=== PATIENT | female | born 1980 | race African-American/Black ===

== ENCOUNTER 2016-04-26 20:25 | Emergency (ER) | payer BC, OTHER ==
[2016-04-26 20:31] VITALS: BP 135/78; PULSE 95; TEMP 98.2; BMI 47.5
== END 2016-04-26 22:37 | disposition left against medical advice (07) ==
LOC: JER 20:25
DX: Z53.21 Procedure and treatment not carried out due to patient leaving prior to being seen by health care provider (principal)
CPT/HCPCS: 99281-25

== ENCOUNTER 2016-04-27 20:05 | Emergency (ER) | payer BC, OTHER ==
[2016-04-27 20:13] VITALS: BP 142/85; PULSE 103; TEMP 98.4; BMI 44.9
--- NOTE | 2016-04-27 20:17 | PDOC ---
History of Present Illness - General History Source: Patient Exam Limitations: No Limitations - History of Present Illness Initial Comments: 04/27/16 21:16 The patient is a 35 year old female, with a significant past medical history of migraines, vertigo (diagnosed in Jan 2016), PCOS, and anemia who presents to the emergency department with headache, blurry vision, and dizziness for about 4 days. She reports her current symptoms do not feel like her regular migraines , her last episode of migraine was in january of 2016. She reports usually taking butalbital with good alleviation of her pain. She reports upon ED arrival that she feels like the room is spinning and reports everything looks foggy. She describes her headache as a throbbing vice sensation and reports it being localized at the top of her head worse at her left side. She ranks her pain a 8/10 in pain intensity. She denies fever, chills, or illness. She denies nausea, vomit, diarrhea and constipation. LMP was in january, reports having a hard time ovulating and reports having blood test indicating she is not . She denies any trauma or injury. PAST SURGICAL HISTORY: No significant history. FAMILY HISTORY: No pertinent history. SOCIAL HISTORY: Patient lives with family and is employed. MEDICATIONS: Reviewed. ALLERGIES: As per nursing notes. General: No fevers or chills, no weakness, no weight loss HEENT: Yes blurry vision. No change in vision. No sore throat. No ear pain CardioVascular: No chest pain or shortness of breath Respiratory:No cough, or wheezing. Gastrointestinal: No nausea, vomiting, diarrhea or constipation. No rectal bleeding Genitourinary: No dysuria, hematuria, or frequency Musculoskeletal: No joint or muscle pain or swelling Neurologic: Yes headache, dizziness Psychiatric: No depression Skin: No rashes or easy bruising Endocrine: no increased thirst or abnormal weight change Allergic: no skin or latex allergy All other systems reviewed and normal GENERAL: The patient is awake, alert, and fully oriented, in no acute distress. HEAD: Normal with no signs of trauma. EYES: Pupils equal, round and reactive to light, extraocular movements intact, sclera anicteric, conjunctiva clear. EXTREMITIES: Normal range of motion, no edema. NEUROLOGICAL: Normal speech, normal gait. Mild photophobia. PSYCH: Normal mood, normal affect. SKIN: Warm, Dry, normal turgor, no rashes or lesions noted. <Al Pizarro - Last Filed: 04/27/16 21:15> - General History Source: Patient Exam Limitations: No Limitations - History of Present Illness Initial Comments: 04/27/16 21:31 A portion of this note was documented by scribe services under my direction. I have reviewed the details of the note, within reason, and agree with the documentation. The case summary and management plan written by me. Assessment and plan: This is a 35-year-old female who has history of polycystic ovary syndrome and has had intermittent moderately severe migraine headaches. Patient was here approximately one month ago with a similar headache and now back again this month with another headache. Patient has not followed up with a neurologist or headache specialist as her headaches of been more intermittent but now seems to be more frequent. Patient was medicated with Fiorcet, Toradol and Reglan. Patient symptoms are improved post medication. Patient was referred to a neurologist for follow-up. Patient discharged home with her significant other. <Alfonso Carrillo I - Last Filed: 04/27/16 21:47> - General Chief Complaint: Lightheaded Stated Complaint: ONGOING HEADACHE AND DIZZINESS Time Seen by Provider: 04/27/16 20:07 Past History <Al Pizarro - Last Filed: 04/27/16 21:15> - Past Medical History Anemia: Yes (IRON DEFICIENCY) Asthma: Yes (CHILD HIDALGO) Diabetes: Yes Disorders: Yes (PCOS) Kidney Stones: Yes - Surgical History Abdominal Surgery: Yes (POLYPECTOMY, D&C) - Reproductive History (#): 2 Para: 0 Cervical CA: No Dysfunctional Uterine Bleeding: No Ectopic : No Endometrial CA: No Polycystic Ovaries: No Therapeutic (s) & number: No Spontaneous : 1 - Immunization History Immunization Up to Date: Yes - Psycho/Social/Smoking Cessation Hx Anxiety: No Suicidal Ideation: No Smoking Status: No Smoking History: Never smoked Have you smoked in the past 12 months: No Number of Cigarettes Smoked Daily: 0 Hx Alcohol Use: No Drug/Substance Use Hx: No Substance Use Type: None Hx Substance Use Treatment: No <Alfonso Carrillo I - Last Filed: 04/27/16 21:47> - Past Medical History Allergies/Adverse Reactions: Allergies Allergy/AdvReac Type Severity Reaction Status Date / Time Penicillins Allergy Verified 03/09/16 18:11 Home Medications: Ambulatory Orders Acetaminophen [Tylenol] 650 mg PO PRN PRN 04/27/16 Meclizine HCl [Antivert -] 25 mg PO QID PRN 04/27/16 *Physical Exam - Vital Signs Last Vital Signs Temp Pulse Resp BP Pulse Ox 98.4 F 103 H 18 142/85 98 04/27/16 20:11 04/27/16 20:11 04/27/16 20:11 04/27/16 20:11 04/27/16 20:11 <Al Pizarro - Last Filed: 04/27/16 21:15> - Vital Signs Last Vital Signs Temp Pulse Resp BP Pulse Ox 98.4 F 103 H 18 142/85 98 04/27/16 20:11 04/27/16 20:11 04/27/16 20:11 04/27/16 20:11 04/27/16 20:11 <Alfonso Carrillo I - Last Filed: 04/27/16 21:47> *DC/Admit/Observation/Transfer - Attestations Scribe Attestion: Documentation prepared by Al Pizarro, acting as emergency medicine medical director for Alfonso Carrillo MD. 04/27/16 20:51 <Al Pizarro - Last Filed: 04/27/16 21:15> - Discharge Dispostion Admit: No <Alfonso Carrillo I - Last Filed: 04/27/16 21:47> Diagnosis at time of Disposition: Migraine Qualifiers: Migraine type: unspecified Status migrainosus presence: without status migrainosus Intractability: not intractable Qualified Code(s): G43.909 - Migraine, unspecified, not intractable, without status migrainosus - Discharge Dispostion Disposition: HOME Condition at time of disposition: Stable - Referrals Referrals: Joann Glass MD [Primary Care Provider] - - Patient Instructions Additional Instructions: Follow-up with a neurologist. If you need a neurologist call Dr. Webster at [phone]. Return to the emergency department immediately with ANY new, persistent or worsening symptoms. Continue any medications as previously prescribed by your physician. You should follow up with your primary doctor as soon as possible regarding today's emergency department visit. . Please make sure your doctor reviews the results of your emergency evaluation. Thank you for coming to the Emergency Department today for your care. It was a pleasure to see you today. Please note that your evaluation is INCOMPLETE until you follow-up with your doctor.
[2016-04-27] MEDS ORDERED: ACETAMINOPHEN/CAFFEINE/BUTALBITAL 1 TAB PO ONE (20:58)
[2016-04-27] MEDS ORDERED: KETOROLAC TROMETHAMINE 60 MG/2 ML VIAL IM ONE (20:58)
[2016-04-27] MEDS ORDERED: METOCLOPRAMIDE HCL INJECTION 10 MG/2 ML VIAL IM ONE (20:59)
[2016-04-27] MEDS ORDERED: KETOROLAC TROMETHAMINE 60 MG/2 ML VIAL ONE (21:01)
[2016-04-27] MEDS ORDERED: ACETAMINOPHEN/CAFFEINE/BUTALBITAL 1 TAB ONE (21:02)
== END 2016-04-27 21:53 | disposition home or self-care (01) ==
LOC: FER 20:05
PROC: 3E0233Z Introduction of Anti-inflammatory into Muscle, Percutaneous Approach (ICD-10-PCS; principal; 2016-04-27)
PROC: 3E023GC Introduction of Other Therapeutic Substance into Muscle, Percutaneous Approach (ICD-10-PCS; 2016-04-27)
DX: G43.909 Migraine, unspecified, not intractable, without status migrainosus (principal); E28.2 Polycystic ovarian syndrome; D64.9 Anemia, unspecified
CPT/HCPCS: 99281-25

== ENCOUNTER 2017-02-18 19:28 | Emergency (ER) | payer BC, OTHER ==
--- NOTE | 2017-02-18 19:45 | PDOC ---
History of Present Illness - General History Source: Patient Exam Limitations: No Limitations - History of Present Illness Initial Comments: 02/18/17 20:14 The patient is a 36 year old female, with a significant past medical history of migraines, vertigo, PCOS, and anemia, who presents to the emergency department with right lower back pain beginning approximately one day ago. The patient reports that she felt a discomfort in her lower back on Sunday night and she experienced the right lower back pain upon waking up on Sunday morning. She describes the right lower back pain as non radiating and not positional. She reports she took 2 Aleve without relief for the back pain. The patient states she has a prior history of kidney stones and describes the pain as similar to past kidney stones. She denies recent fevers, chills, headache or dizziness. She denies recent nausea, vomit, diarrhea or constipation. She denies recent dysuria, frequency, urgency or hematuria. She denies recent chest pain or shortness of breath. Allergies: Penicillins Past surgical history: None reported. Primary Care Physician: Dr. Joann Glass <Bj Mondragon - Last Filed: 02/18/17 20:14> <George Jimenez - Last Filed: 02/19/17 06:33> - General Chief Complaint: Back Pain Stated Complaint: RIGHT LOWER BACK PAIN Time Seen by Provider: 02/18/17 19:45 Past History <Bj Mondragon - Last Filed: 02/18/17 20:14> - Past Medical History Anemia: Yes (IRON DEFICIENCY) Asthma: Yes (CHILD HIDALGO) Diabetes: Yes Disorders: Yes (PCOS) Kidney Stones: Yes - Surgical History Abdominal Surgery: Yes (POLYPECTOMY, D&C) - Reproductive History (#): 2 Para: 0 Cervical CA: No Dysfunctional Uterine Bleeding: No Ectopic : No Endometrial CA: No Polycystic Ovaries: No Therapeutic (s) & number: No Spontaneous : 1 - Immunization History Immunization Up to Date: Yes - Suicide/Smoking/Psychosocial Hx Smoking Status: No Smoking History: Never smoked Have you smoked in the past 12 months: No Number of Cigarettes Smoked Daily: 0 Hx Alcohol Use: No Drug/Substance Use Hx: No Substance Use Type: None Hx Substance Use Treatment: No <George Jimenez - Last Filed: 02/19/17 06:33> - Past Medical History Allergies/Adverse Reactions: Allergies Allergy/AdvReac Type Severity Reaction Status Date / Time Penicillins Allergy Verified 03/09/16 18:11 Home Medications: Ambulatory Orders Acetaminophen [Tylenol] 650 mg PO PRN PRN 04/27/16 Oxycodone HCl/Acetaminophen [Percocet 5-325 mg Tablet] 1 tab PO Q6H PRN #10 tablet MDD 4 02/18/17 Review of Systems - Review of Systems Comments:: 02/18/17 20:15 GENERAL/CONSTITUTIONAL: No fever or chills. No weakness. HEAD, EYES, EARS, NOSE AND THROAT: No change in vision. No ear pain or discharge. No sore throat. CARDIOVASCULAR: No chest pain or shortness of breath. RESPIRATORY: No cough, wheezing, or hemoptysis. GASTROINTESTINAL: No nausea, vomiting, diarrhea or constipation. GENITOURINARY: No dysuria, frequency, or change in urination. MUSCULOSKELETAL: +Right lower back pain. No neck pain SKIN: No rash NEUROLOGIC: No headache, vertigo, loss of consciousness, or change in strength/ sensation. ENDOCRINE: No increased thirst. No abnormal weight change. HEMATOLOGIC/LYMPHATIC: No anemia, easy bleeding, or history of blood clots. ALLERGIC/IMMUNOLOGIC: No hives or skin allergy. <Bj Mondragon - Last Filed: 02/18/17 20:14> *Physical Exam - Vital Signs Last Vital Signs Temp Pulse Resp BP Pulse Ox 98.5 F 103 H 16 125/90 95 02/18/17 19:30 02/18/17 19:30 02/18/17 19:30 02/18/17 19:30 02/18/17 19:30 - Physical Exam Comments: 02/18/17 20:15 GENERAL: Awake, alert, and fully oriented, in no acute distress HEAD: No signs of trauma EYES: PERRLA, EOMI, sclera anicteric, conjunctiva clear ENT: Auricles normal inspection, hearing grossly normal, nares patent, oropharynx clear without exudates. Moist mucosa NECK: Normal ROM, supple, no lymphadenopathy, JVD, or masses LUNGS: Breath sounds equal, clear to auscultation bilaterally. No wheezes, and no crackles HEART: Regular rate and rhythm, normal S1 and S2, no murmurs, rubs or gallops ABDOMEN: Soft, nontender, normoactive bowel sounds. No guarding, no rebound. No masses EXTREMITIES: Normal range of motion, no edema. No clubbing or cyanosis. No cords, erythema, or tenderness NEUROLOGICAL: Cranial nerves II through XII grossly intact. Normal speech, normal gait SKIN: Warm, Dry, normal turgor, no rashes or lesions noted. <Bj Mondragon - Last Filed: 02/18/17 20:14> ED Treatment Course - Medications Given in the ED: ED Medications Discontinued Medications Generic Name Dose Route Start Last Admin Trade Name Freq PRN Reason Stop Dose Admin Ketorolac Tromethamine 60 mg 02/18/17 20:04 02/18/17 20:00 Toradol Injection - IM 02/18/17 20:05 60 mg ONCE ONE Administration <Bj Mondragon - Last Filed: 02/18/17 20:14> - LABORATORY CBC & Chemistry Diagram: 02/18/17 21:10 02/18/17 21:10 <George Jimenez - Last Filed: 02/19/17 06:33> Medical Decision Making - Medical Decision Making 02/19/17 06:30 hx most c/w renal colic. ABd nt, no CVAT, no focal tenderness of back. However, no evidence of acute pathology on labs or imaging ? small kidney stone observed in ED x 4.5 hrs with complete resolution of symptoms instructed to return to ED for recurrence of persistent pain <George Jimenez - Last Filed: 02/19/17 06:33> *DC/Admit/Observation/Transfer - Attestations Scribe Attestion: 02/18/17 20:15 Documentation prepared by Bj Mondragon, acting as emergency medicine medical director for George Jimenez MD. <Bj Mondragon - Last Filed: 02/18/17 20:14> <George Jimenez - Last Filed: 02/19/17 06:33> Diagnosis at time of Disposition: Flank pain - Discharge Dispostion Disposition: HOME Condition at time of disposition: Good - Prescriptions Prescriptions: Oxycodone HCl/Acetaminophen [Percocet 5-325 mg Tablet] 1 tab PO Q6H PRN #10 tablet MDD 4 PRN Reason: Severe Pain - Referrals Referrals: Joann Glass MD [Primary Care Provider] - Call tomorrow - Patient Instructions Additional Instructions: Please followup with your physician for ongoing care. - Post Discharge Activity Forms/Work/School Notes: Back to Work
[2017-02-18 19:57] VITALS: BP 125/90; PULSE 103; TEMP 98.5; BMI 48.1
[2017-02-18] MEDS ORDERED: KETOROLAC TROMETHAMINE 60 MG/2 ML VIAL ONE (19:58)
[2017-02-18] MEDS ORDERED: KETOROLAC TROMETHAMINE 60 MG/2 ML VIAL IM ONE (20:04)
[2017-02-18 20:20] LABS: PH,URINE 6.5 (4.5-8); URINE APPEARANCE Clear; URINE BILIRUBIN Negative (NEGATIVE); URINE BLOOD Negative (NEGATIVE); URINE COLOR YELLOW; URINE GLUCOSE (UA) Negative (NEGATIVE); URINE KETONE Negative (NEGATIVE); URINE LEUK ESTERASE TRACE (NEGATIVE); URINE NITRITE Negative (NEGATIVE); URINE PROTEIN Negative (NEGATIVE); URINE UROBILINOGEN 0.2 (0.2-1.0)
[2017-02-18 20:41] LABS: URINE RBC 0-3 /hpf (0-3)
[2017-02-18] MEDS ORDERED: morphine CARPU-JECT 4 MG/1 ML DISP.SYRIN IVPUSH ONE (21:03)
[2017-02-18] MEDS ORDERED: SODIUM CHLORIDE 1,000 ML IV STA (21:04)
[2017-02-18] MEDS ORDERED: morphine CARPU-JECT 10 MG/1 ML DISP.SYRIN ONE (21:17)
[2017-02-18 21:38] LABS: ANION GAP 8 (8-16); CALCIUM 9.1 mg/dl (8.4-10.2); CO2 24 mmol/L (22-28); CREATININE 0.5 mg/dl (0.6-1.3); GLUCOSE,RANDOM 86 mg/dl (74-106)
[2017-02-18 21:55] LABS: BASOPHIL 1.1 % (0-2.0); EOSINOPHIL 2.6 % (0-4.5); MCH 24.4 pg (25.7-33.7); MEAN CELL VOLUME 74.2 fl (80-96); MEAN PLT VOLUME 9.8 fl (7.5-11.1); NEUTROPHILS 58.2 % (42.8-82.8); PLATELET COUNT 328 K/MM3 (134-434); RDW 15.6 % (11.6-15.6); WHITE BLOOD COUNT 9.1 K/mm3 (4.0-10.8)
[2017-02-18 23:15] LABS: ANISOCYTOSIS 1+; HYPOCHROMIA 1+; MICROCYTOSIS 1+
[2017-02-18 23:16] LABS: OVALOCYTE 1+
== END 2017-02-18 23:52 | disposition home or self-care (01) ==
LOC: FER 19:28
PROC: 3E0333Z Introduction of Anti-inflammatory into Peripheral Vein, Percutaneous Approach (ICD-10-PCS; principal; 2017-02-18)
PROC: 3E033GC Introduction of Other Therapeutic Substance into Peripheral Vein, Percutaneous Approach (ICD-10-PCS; 2017-02-18)
PROC: 3E0337Z Introduction of Electrolytic and Water Balance Substance into Peripheral Vein, Percutaneous Approach (ICD-10-PCS; 2017-02-18)
DX: R10.30 Lower abdominal pain, unspecified (principal); D50.9 Iron deficiency anemia, unspecified; E11.9 Type 2 diabetes mellitus without complications; E28.2 Polycystic ovarian syndrome; Z88.0 Allergy status to penicillin; Z87.09 Personal history of other diseases of the respiratory system; Z87.442 Personal history of urinary calculi
CPT/HCPCS: 36415; 74176-TC; 80048; 81003; 81015; 84703; 85025; 99283-25

== ENCOUNTER 2017-09-12 19:12 | Emergency (ER) | payer OTHER, BC ==
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
[2017-09-12 19:21] VITALS: BP 130/78; PULSE 88; TEMP 98; BMI 47.0
[2017-09-12] MEDS ORDERED: KETOROLAC TROMETHAMINE 60 MG/2 ML VIAL IM ONE (19:36)
[2017-09-12] MEDS ORDERED: KETOROLAC TROMETHAMINE 60 MG/2 ML VIAL ONE (19:47)
== END 2017-09-12 19:53 | disposition home or self-care (01) ==
LOC: FER 19:12
PROC: 3E0233Z Introduction of Anti-inflammatory into Muscle, Percutaneous Approach (ICD-10-PCS; principal; 2017-09-12)
DX: S13.4XXA Sprain of ligaments of cervical spine, initial encounter (principal); V43.52XA Car driver injured in collision with other type car in traffic accident, initial encounter; Y93.89 Activity, other specified; Y92.410 Unspecified street and highway as the place of occurrence of the external cause
CPT/HCPCS: 99282-25

== ENCOUNTER 2018-07-07 22:49 | Emergency (ER) | payer BC ==
[2018-07-07 22:59] VITALS: BP 138/84; PULSE 90; TEMP 98.3; BMI 54.8
[2018-07-07] MEDS ORDERED: OXYMETAZOLINE 0.05% NASAL SOLUTION 15 ML BOTTLE NS ONE ×2 (23:30→23:38)
[2018-07-07] MEDS ORDERED: KETOROLAC TROMETHAMINE 30 MG/1 ML VIAL IM ONE (23:30)
[2018-07-07] MEDS ORDERED: ACETAMINOPHEN 325 MG TABLET (FP) PO ONE (23:30)
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
[2018-07-07] MEDS ORDERED: ALBUTEROL SO4 2.5/IPRATROPIUM 0.5 INH SOL 3 ML VIAL.NEB. NEB ONE ×2 (23:31→23:38)
[2018-07-07] MEDS ORDERED: ACETAMINOPHEN 325 MG TABLET (FP) ONE (23:38)
[2018-07-07] MEDS ORDERED: KETOROLAC TROMETHAMINE 30 MG/1 ML VIAL ONE (23:38)
== END 2018-07-08 00:17 | disposition home or self-care (01) ==
LOC: FER 22:49
PROC: 3E0F7GC Introduction of Other Therapeutic Substance into Respiratory Tract, Via Natural or Artificial Opening (ICD-10-PCS; principal; 2018-07-07)
PROC: 3E0233Z Introduction of Anti-inflammatory into Muscle, Percutaneous Approach (ICD-10-PCS; 2018-07-07)
DX: J11.1 Influenza due to unidentified influenza virus with other respiratory manifestations (principal); J45.909 Unspecified asthma, uncomplicated; D50.9 Iron deficiency anemia, unspecified
CPT/HCPCS: 99282-25

== ENCOUNTER 2020-03-02 13:55 | Emergency (ER) | payer BC, OTHER ==
[2020-03-02 14:08] VITALS: BP 127/80; PULSE 91; TEMP 99; BMI 48.8
[2020-03-02] MEDS ORDERED: ACETAMINOPHEN 1000 MG/100 ML VIAL (NON FORMULARY) IVPB ONE (14:39)
[2020-03-02] MEDS ORDERED: SODIUM CHLORIDE 0.9% 500 ML INFUS.BAG IV ONE (14:39)
[2020-03-02] MEDS ORDERED: ACETAMINOPHEN INJECTION 100 ML IVPB ONE (14:42)
[2020-03-02] MEDS ORDERED: METOCLOPRAMIDE HCL INJECTION 10 MG/2 ML VIAL IVPB ONE (14:56)
[2020-03-02 15:31] LABS: EPITHELIAL CELLS MANY /hpf
[2020-03-02] MEDS ORDERED: METOCLOPRAMIDE HCL INJECTION 10 MG/2 ML VIAL ONE (15:35)
[2020-03-02 16:14] LABS: INR 1.19 (0.82-1.09); PROTHROMBIN TIME (PATIENT) 13.2 SEC (10.2-13.0)
[2020-03-02 16:19] LABS: ALBUMIN 3.8 g/dl (3.4-5.0); BILIRUBIN,TOTAL 0.3 mg/dl (0.2-1); CALCIUM 9.1 mg/dl (8.5-10); CREATININE 0.5 mg/dl (0.55-1.3); MAGNESIUM 1.9 mg/dL (1.8-2.4); POTASSIUM 4.3 mmol/L (3.5-5.1); TOT PROT 7.1 g/dl (6.4-8.2)
[2020-03-02 16:39] LABS: BASO % 0.9 % (0-2.0); EOS % 3.6 % (0-4.5); HEMOGLOBIN 12.8 GM/dl (10.7-15.3); LYMPH % 41.7 % (8-40); MCH 25.9 pg (25.7-33.7); MCHC 31.9 g/dl (32.0-36.0); MEAN CELL VOLUME 81.2 fl (80-96); MEAN PLT VOLUME 9.8 fl (7.5-11.1); MONO % 5.8 % (3.8-10.2); PLATELET COUNT 267 K/MM3 (134-434); RBC 4.93 M/mm3 (3.60-5.2); RDW 13.7 % (11.6-15.6); WHITE BLOOD COUNT 7.1 K/mm3 (4.0-10.8)
== END 2020-03-02 17:07 | disposition home or self-care (01) ==
LOC: FER 13:55
PROC: 3E033NZ Introduction of Analgesics, Hypnotics, Sedatives into Peripheral Vein, Percutaneous Approach (ICD-10-PCS; principal; 2020-03-02)
PROC: 3E033GC Introduction of Other Therapeutic Substance into Peripheral Vein, Percutaneous Approach (ICD-10-PCS; 2020-03-02)
DX: B34.9 Viral infection, unspecified (principal); N39.0 Urinary tract infection, site not specified
CPT/HCPCS: 36415; 80053; 81003; 81015; 82962; 83735; 84703; 85025; 85610; 87086; 87186; 99285-25; C9803; J0131; U0003

== ENCOUNTER 2020-05-30 10:01 | Emergency (ER) | payer BC, OTHER ==
[2020-05-30 10:07] VITALS: BP 134/90; PULSE 86; TEMP 98; BMI 47.5
[2020-05-30] MEDS ORDERED: KETOROLAC TROMETHAMINE 30 MG/1 ML VIAL IVPUSH ONE (10:58)
[2020-05-30] MEDS ORDERED: METOCLOPRAMIDE HCL INJECTION 10 MG/2 ML VIAL IVPB ONE (10:58)
[2020-05-30] MEDS ORDERED: METOCLOPRAMIDE HCL INJECTION 10 MG/2 ML VIAL ONE (11:24)
[2020-05-30] MEDS ORDERED: KETOROLAC TROMETHAMINE 30 MG/1 ML VIAL ONE (11:25)
== END 2020-05-30 13:00 | disposition home or self-care (01) ==
LOC: JER 10:01
PROC: 3E033GC Introduction of Other Therapeutic Substance into Peripheral Vein, Percutaneous Approach (ICD-10-PCS; principal; 2020-05-30)
DX: R51.9 Headache, unspecified (principal)
CPT/HCPCS: 70450-TC; 84703; 99284-25

== ENCOUNTER 2020-07-23 08:28 | Emergency (ER) | payer BC, OTHER ==
[2020-07-23] MEDS ORDERED: ACETAMINOPHEN 1000 MG/100 ML VIAL (NON FORMULARY) IVPB ONE (08:33)
[2020-07-23] MEDS ORDERED: SODIUM CHLORIDE 0.9% 1000 ML INFUS.BAG IV ONE ×2 (08:33→09:40)
[2020-07-23 08:34] VITALS: TEMP 98.1; BMI 47.9
[2020-07-23] MEDS ORDERED: ACETAMINOPHEN INJECTION 100 ML IVPB ONE (08:54)
[2020-07-23] MEDS ORDERED: ONDANSETRON 4 MG/2 ML VIAL IVPUSH ONE (08:58)
[2020-07-23] MEDS ORDERED: ONDANSETRON 4 MG/2 ML VIAL ONE (08:59)
[2020-07-23 09:13] LABS: HEMOGLOBIN 13.7 GM/dl (10.7-15.3)
[2020-07-23 09:15] LABS: BASO % 1.4 % (0-2.0); EOS % 4.2 % (0-4.5); HEMATOCRIT 42.4 % (32.4-45.2); LYMPH % 27.3 % (8-40); MCH 25.7 pg (25.7-33.7); MCHC 32.3 g/dl (32.0-36.0); MEAN CELL VOLUME 79.8 fl (80-96); MEAN PLT VOLUME 9.2 fl (7.5-11.1); MONO % 5.1 % (3.8-10.2); PLATELET COUNT 287 K/MM3 (134-434); RBC 5.32 M/mm3 (3.60-5.2); RDW 13.3 % (11.6-15.6); WHITE BLOOD COUNT 6.5 K/mm3 (4.0-10.8)
[2020-07-23 09:21] LABS: BILIRUBIN,TOTAL 0.5 mg/dl (0.2-1); CALCIUM 8.7 mg/dl (8.5-10); CREATININE 0.6 mg/dl (0.55-1.3); TOT PROT 7.2 g/dl (6.4-8.2)
[2020-07-23] MEDS ORDERED: FAMOTIDINE 20 MG/50 ML IVPB 20 MG/50 ML MG IVPB ONE ×2 (09:40→10:33)
[2020-07-23 11:08] LABS: EPITHELIAL CELLS MANY /hpf
[2020-07-23 14:02] VITALS: BP 128/88; PULSE 88
== END 2020-07-23 14:12 | disposition home or self-care (01) ==
LOC: FER 08:28
PROC: 3E0333Z Introduction of Anti-inflammatory into Peripheral Vein, Percutaneous Approach (ICD-10-PCS; principal; 2020-07-23)
PROC: 3E033GC Introduction of Other Therapeutic Substance into Peripheral Vein, Percutaneous Approach (ICD-10-PCS; 2020-07-23)
PROC: 3E033GC Introduction of Other Therapeutic Substance into Peripheral Vein, Percutaneous Approach (ICD-10-PCS; 2020-07-23)
DX: R10.84 Generalized abdominal pain (principal)
CPT/HCPCS: 36415; 74177-TC; 80053; 81003; 81015; 84702; 84703; 85025; 87086; 87186; 99285-25; C9803; J0131; U0003; U0005

== ENCOUNTER 2021-02-14 17:00 | Emergency (ER) | payer BC, OTHER ==
[2021-02-14 17:21] VITALS: BP 157/100; PULSE 106; TEMP 100.2; BMI 47.5
[2021-02-14] MEDS ORDERED: ACETAMINOPHEN 325 MG TABLET (FP) PO ONE (17:39)
[2021-02-14] MEDS ORDERED: ACETAMINOPHEN 325 MG TABLET (FP) ONE (17:58)
== END 2021-02-14 19:06 | disposition home or self-care (01) ==
LOC: FER 17:00
DX: R05.1 Acute cough (principal); Z11.52 Encounter for screening for COVID-19
CPT/HCPCS: 71046-TC-FY; 87804; 99284-25; C9803; U0003; U0005

== ENCOUNTER 2021-05-31 14:10 | Emergency (ER) | payer BC, OTHER ==
[2021-05-31 14:20] VITALS: TEMP 98.6; BMI 48.4
[2021-05-31] MEDS ORDERED: ACETAMINOPHEN 1000 MG/100 ML BAG IVPB ONE (15:17)
[2021-05-31] MEDS ORDERED: METOCLOPRAMIDE HCL INJECTION 10 MG/2 ML VIAL IVPB ONE (15:17)
[2021-05-31] MEDS ORDERED: METOCLOPRAMIDE HCL INJECTION 10 MG/2 ML VIAL ONE (15:36)
[2021-05-31] MEDS ORDERED: ACETAMINOPHEN INJECTION 100 ML IVPB ONE (15:36)
[2021-05-31 15:41] LABS: ALBUMIN 3.9 g/dl (3.4-5.0); BILIRUBIN,TOTAL 0.4 mg/dl (0.2-1); CALCIUM 9.3 mg/dl (8.5-10); CREATININE 0.5 mg/dl (0.55-1.3); TOT PROT 7.2 g/dl (6.4-8.2)
[2021-05-31 16:23] LABS: HEMATOCRIT 39.4 % (32.4-45.2); HEMOGLOBIN 12.6 GM/dL (10.7-15.3); MCH 25.1 pg (25.7-33.7); MEAN CELL VOLUME 78.6 fl (80-96); MEAN PLT VOLUME 9.4 fl (7.5-11.1); PLATELET COUNT 277 10^3/uL (134-434); RBC 5.01 M/mm3 (3.60-5.2); RDW 14.3 % (11.6-15.6); WHITE BLOOD COUNT 6.3 K/mm3 (4.0-10.0)
[2021-05-31 17:30] VITALS: BP 122/52; PULSE 76
== END 2021-05-31 17:40 | disposition home or self-care (01) ==
LOC: FER 14:10
PROC: 3E0333Z Introduction of Anti-inflammatory into Peripheral Vein, Percutaneous Approach (ICD-10-PCS; principal; 2021-05-31)
PROC: 3E033GC Introduction of Other Therapeutic Substance into Peripheral Vein, Percutaneous Approach (ICD-10-PCS; 2021-05-31)
DX: G43.909 Migraine, unspecified, not intractable, without status migrainosus (principal); I10 Essential (primary) hypertension; R07.89 Other chest pain
CPT/HCPCS: 36415; 70450-TC; 71045-TC-FY; 80053; 81025; 84484; 85027; 93005; 99285-25

== ENCOUNTER 2021-08-04 11:48 | Emergency (ER) | payer BC, OTHER ==
[2021-08-04 11:55] VITALS: BP 125/86; PULSE 87; TEMP 97.2; BMI 47.7
[2021-08-04] MEDS ORDERED: SODIUM CHLORIDE 1,000 ML IV ONE (12:14)
[2021-08-04] MEDS ORDERED: ACETAMINOPHEN 325 MG TABLET (FP) PO ONE (12:14)
[2021-08-04] MEDS ORDERED: ACETAMINOPHEN 325 MG TABLET (FP) ONE (12:34)
[2021-08-04 12:38] LABS: EPITHELIAL CELLS MODERATE /hpf
[2021-08-04] MEDS ORDERED: SULFAMETHOXAZOLE/TRIMETHOPRIM 800MG/160MG D.S. TABLET PO ONE (12:50)
[2021-08-04] MEDS ORDERED: SULFAMETHOXAZOLE/TRIMETHOPRIM 800MG/160MG D.S. TABLET ONE (12:52)
[2021-08-04 13:03] LABS: HEMATOCRIT 39.3 % (32.4-45.2); HEMOGLOBIN 13.4 G/dL (10.7-15.3); MCH 26.5 pg (25.7-33.7); MCHC 34.1 g/dl (32.0-36.0); MEAN CELL VOLUME 77.9 fl (80-96); MEAN PLT VOLUME 9.3 fl (7.5-11.1); PLATELET COUNT 251.3 10^3/uL (134-434); RBC 5.05 10^6/uL (3.60-5.2); RDW 16.1 % (11.6-15.6); WHITE BLOOD COUNT 6.7 10^3/uL (4.0-10.8)
[2021-08-04 13:50] LABS: ALBUMIN 3.9 g/dl (3.4-5.0); BILIRUBIN,TOTAL 0.4 mg/dl (0.2-1); CALCIUM 9.3 mg/dl (8.5-10); CREATININE 0.5 mg/dl (0.55-1.3)
[2021-08-04 14:14] LABS: ADD RBC MORPHOLOGY YES; PLATELET ESTIMATE ADEQUATE
[2021-08-04 14:16] LABS: ANISOCYTOSIS 1+
[2021-08-05 20:12] LABS: SARS-CoV-2 NAA Not Detected (Not Detected)
== END 2021-08-04 14:20 | disposition home or self-care (01) ==
LOC: FER 11:48
PROC: 3E0337Z Introduction of Electrolytic and Water Balance Substance into Peripheral Vein, Percutaneous Approach (ICD-10-PCS; principal; 2021-08-04)
DX: N39.0 Urinary tract infection, site not specified (principal)
CPT/HCPCS: 36415; 80053; 81003; 81015; 84484; 85025; 87086; 87186; 93005; 99284-25; C9803-CS; U0003; U0005

== ENCOUNTER 2021-08-05 16:54 | Emergency (ER) | payer BC, OTHER ==
[2021-08-05 17:01] VITALS: BP 135/98; PULSE 89; TEMP 98.5; BMI 47.5
[2021-08-05] MEDS ORDERED: METOCLOPRAMIDE HCL INJECTION 10 MG/2 ML VIAL IVPB ONE (17:22)
[2021-08-05] MEDS ORDERED: SODIUM CHLORIDE 1,000 ML IV STA (17:22)
[2021-08-05] MEDS ORDERED: ACETAMINOPHEN 1000 MG/100 ML BAG IVPB ONE (17:22)
[2021-08-05] MEDS ORDERED: ACETAMINOPHEN INJECTION 100 ML IVPB ONE (17:31)
[2021-08-05] MEDS ORDERED: METOCLOPRAMIDE HCL INJECTION 10 MG/2 ML VIAL ONE (17:31)
[2021-08-05] MEDS ORDERED: SULFAMETHOXAZOLE/TRIMETHOPRIM 800MG/160MG D.S. TABLET PO ONE (18:57)
[2021-08-05] MEDS ORDERED: SULFAMETHOXAZOLE/TRIMETHOPRIM 800MG/160MG D.S. TABLET ONE (19:08)
== END 2021-08-05 19:25 | disposition home or self-care (01) ==
LOC: FER 16:54
PROC: 3E033GC Introduction of Other Therapeutic Substance into Peripheral Vein, Percutaneous Approach (ICD-10-PCS; principal; 2021-08-05)
DX: R51.9 Headache, unspecified (principal)
CPT/HCPCS: 70450-TC; 84703; 99285-25

== ENCOUNTER 2021-09-17 00:28 | Inpatient (IN) | payer BC, OTHER ==
[2021-09-17 00:41] VITALS: BMI 47.5
[2021-09-17] MEDS ORDERED: SODIUM CHLORIDE 1,000 ML IV ONE (01:13)
[2021-09-17 02:20] LABS: BASO % 0.9 % (0-2.0); EOS % 2.7 % (0-4.5); HEMATOCRIT 37.7 % (32.4-45.2); HEMOGLOBIN 12.4 GM/dL (10.7-15.3); LYMPH % 44.9 % (8-40); MCH 25.3 pg (25.7-33.7); MCHC 32.9 g/dl (32.0-36.0); MEAN CELL VOLUME 77.1 fl (80-96); MEAN PLT VOLUME 9.9 fl (7.5-11.1); MONO % 6.8 % (3.8-10.2); NEUT % 44.7 % (42.8-82.8); PLATELET COUNT 245 10^3/uL (134-434); RBC 4.89 M/mm3 (3.60-5.2); RDW 14.4 % (11.6-15.6); WHITE BLOOD COUNT 7.9 K/mm3 (4.0-10.0)
[2021-09-17 02:40] LABS: ALBUMIN 3.6 g/dl (3.4-5.0); BLOOD UREA NITROGEN 12.6 mg/dL (7-18); CALCIUM 9.2 mg/dL (8.5-10.1)
[2021-09-17 02:43] LABS: CREATININE 0.7 mg/dL (0.55-1.3)
[2021-09-17 02:45] LABS: BILIRUBIN,TOTAL 0.2 mg/dL (0.2-1); TOT PROT 7.5 g/dl (6.4-8.2)
[2021-09-17 02:48] LABS: INR 1.15 (0.83-1.09); PROTHROMBIN TIME (PATIENT) 13.2 SEC (9.7-13.0)
[2021-09-17 08:43] LABS: HEMATOCRIT 36.1 % (32.4-45.2); MCHC 33.1 g/dl (32.0-36.0); MEAN CELL VOLUME 78.5 fl (80-96); MEAN PLT VOLUME 9.1 fl (7.5-11.1); PLATELET COUNT 243.6 10^3/uL (134-434); RDW 15.5 % (11.6-15.6); WHITE BLOOD COUNT 6.7 10^3/uL (4.0-10.8)
[2021-09-17 10:38] VITALS: BP 136/82; PULSE 82; TEMP 98.6
== END 2021-09-17 11:15 | disposition home or self-care (01) | DRG 378 ==
LOC: FER 00:28 → FM/S 03:01 → OBSVTOIN 03:01 → INTOOBSV 03:01 → UNDOADMOB 03:01 → UNDODISOB 11:15 → FM/S 12:47 → UNDOADMOB 12:47
PROVIDERS: ADMIT Internal Medicine; ATTEND Internal Medicine
DX: K62.5 Hemorrhage of anus and rectum (principal); Z68.42 Body mass index [BMI] 45.0-49.9, adult; D50.9 Iron deficiency anemia, unspecified; E28.2 Polycystic ovarian syndrome; N20.0 Calculus of kidney; G43.909 Migraine, unspecified, not intractable, without status migrainosus; E66.01 Morbid (severe) obesity due to excess calories; Z88.0 Allergy status to penicillin
CPT/HCPCS: 36415; 71045-TC-FY; 80053; 85025; 85027; 85610; 86850; 86900; 86901; 93005; 99285-25; C9803-CS; G0378; U0003; U0005

== ENCOUNTER 2022-07-21 07:44 | Emergency (ER) | payer BC, OTHER ==
[2022-07-21 07:55] VITALS: BP 157/100; PULSE 87; RESP 20; TEMP 98.7; BMI 48.2
[2022-07-21] MEDS ORDERED: ACETAMINOPHEN 1000 MG/100 ML BAG IVPB ONE (08:06)
[2022-07-21] MEDS ORDERED: SODIUM CHLORIDE 0.9% 1000 ML INFUS.BAG IV ONE (08:06)
[2022-07-21] MEDS ORDERED: MAG HYDROX/AL HYDROX/SIMETH -MYLANTA- ORAL SUSPENSION PO ONE (08:06)
[2022-07-21] MEDS ORDERED: FAMOTIDINE 20 MG/50 ML IVPB 20 MG/50 ML MG IVPB ONE ×2 (08:06→08:16)
[2022-07-21] MEDS ORDERED: ACETAMINOPHEN INJECTION 100 ML IVPB ONE (08:16)
[2022-07-21] MEDS ORDERED: MAG HYDROX/AL HYDROX/SIMETH 30 ML UNIT-DOSE CUP ONE (08:16)
[2022-07-21 09:00] LABS: HEMATOCRIT 39.2 % (32.4-45.2); HEMOGLOBIN 12.6 G/dL (10.7-15.3); MCH 24.8 pg (25.7-33.7); MCHC 32.1 g/dl (32.0-36.0); MEAN CELL VOLUME 77.4 fl (80-96); MEAN PLT VOLUME 9.4 fl (7.5-11.1); PLATELET COUNT 343.5 10^3/uL (134-434); RBC 5.07 10^6/uL (3.60-5.2); RDW 17.4 % (11.6-15.6); WHITE BLOOD COUNT 6.2 10^3/uL (4.0-10.8)
[2022-07-21 09:14] LABS: ALBUMIN 4.1 g/dl (3.4-5.0); BILIRUBIN,TOTAL 0.4 mg/dl (0.2-1); CALCIUM 9.6 mg/dl (8.5-10); CREATININE 0.7 mg/dl (0.55-1.3); TOT PROT 7.8 g/dl (6.4-8.2)
== END 2022-07-21 10:58 | disposition home or self-care (01) ==
LOC: FER 07:44
PROC: 3E033GC Introduction of Other Therapeutic Substance into Peripheral Vein, Percutaneous Approach (ICD-10-PCS; principal; 2022-07-21)
PROC: 3E033NZ Introduction of Analgesics, Hypnotics, Sedatives into Peripheral Vein, Percutaneous Approach (ICD-10-PCS; 2022-07-21)
DX: K62.5 Hemorrhage of anus and rectum (principal); R10.13 Epigastric pain
CPT/HCPCS: 36415; 76705-TC; 80053; 82272; 85027; 99284-25

== ENCOUNTER 2023-08-05 09:10 | Emergency (ER) | payer OTHER, BC ==
[2023-08-05 09:17] VITALS: RESP 16; BMI 48.4
[2023-08-05 10:02] VITALS: BP 146/101; PULSE 94; TEMP 98
[2023-08-05] MEDS ORDERED: KETOROLAC TROMETHAMINE 15 MG/ML VIAL ONE ×2 (10:48→14:09)
[2023-08-05] MEDS: KETOROLAC TROMETHAMINE 15 MG/ML VIAL IVPUSH ONE ×2 (10:54→14:10)
[2023-08-05 10:58] LABS: HEMATOCRIT 40.2 % (32.4-45.2); HEMOGLOBIN 12.4 G/dL (10.7-15.3); MCH 23.8 pg (25.7-33.7); MCHC 30.9 g/dl (32.0-36.0); MEAN CELL VOLUME 76.8 fl (80-96); MEAN PLT VOLUME 9.6 fl (7.5-11.1); RBC 5.23 10^6/uL (3.60-5.2); RDW 17.3 % (11.6-15.6); WHITE BLOOD COUNT 6.2 10^3/uL (4.0-10.8)
[2023-08-05 11:02] LABS: HCG,QUALITATIVE URINE Negative
[2023-08-05 11:05] LABS: INR 1.13 (0.83-1.09); PROTHROMBIN TIME (PATIENT) 12.8 SEC (9.7-13.0)
[2023-08-05 11:08] LABS: ACTIVATED PTT 34.3 SECONDS (25.2-36.5)
[2023-08-05 11:09] LABS: PLATELET ESTIMATE ADEQUATE
[2023-08-05 11:15] LABS: ALBUMIN 4.3 g/dl (3.4-5.0); BILIRUBIN,TOTAL 0.3 mg/dl (0.2-1); CALCIUM 9.5 mg/dl (8.5-10.1); CREATININE 0.7 mg/dl (0.6-1.3); POTASSIUM 4.2 mmol/L (3.5-5.1); TOT PROT 7.4 g/dl (6.4-8.2)
== END 2023-08-05 15:03 | disposition home or self-care (01) ==
LOC: FER 09:10
PROC: 3E0303Z Introduction of Anti-inflammatory into Peripheral Vein, Open Approach (ICD-10-PCS; principal; 2023-08-05)
PROC: 3E0303Z Introduction of Anti-inflammatory into Peripheral Vein, Open Approach (ICD-10-PCS; 2023-08-05)
DX: N92.0 Excessive and frequent menstruation with regular cycle (principal); R10.2 Pelvic and perineal pain
CPT/HCPCS: 36415; 76830-TC; 80053; 81003; 81015; 84703; 85025; 85610; 85730; 99284-25

== ENCOUNTER 2024-02-11 19:58 | Emergency (ER) | payer OTHER, BC ==
[2024-02-11 20:19] VITALS: RESP 18; BMI 48.6
[2024-02-11] MEDS ORDERED: ACETAMINOPHEN INJECTION 100 ML ONE (21:32)
[2024-02-11] MEDS: SODIUM CHLORIDE 1,000 ML IV STA (21:40)
[2024-02-11] MEDS: ACETAMINOPHEN 1000 MG/100 ML BAG IVPB ONE (21:44)
[2024-02-11 21:47] LABS: HEMATOCRIT 38.4 % (32.4-45.2); HEMOGLOBIN 12.4 G/dL (10.7-15.3); MCH 24.5 pg (25.7-33.7); MCHC 32.3 g/dl (32.0-36.0); MEAN CELL VOLUME 75.9 fl (80-96); MEAN PLT VOLUME 9.7 fl (7.5-11.1); PLATELET COUNT 326.5 10^3/uL (134-434); RBC 5.06 10^6/uL (3.60-5.2); WHITE BLOOD COUNT 9.2 10^3/uL (4.0-10.8)
[2024-02-11 21:56] LABS: PLATELET ESTIMATE ADEQUATE
[2024-02-11 22:07] LABS: CREATININE 0.6 mg/dl (0.6-1.3)
[2024-02-11 22:08] LABS: ALBUMIN 4.4 g/dl (3.4-5.0); BILIRUBIN,TOTAL 0.2 mg/dl (0.2-1); CALCIUM 10.2 mg/dl (8.5-10.1); POTASSIUM 4.2 mmol/L (3.5-5.1); TOT PROT 7.2 g/dl (6.4-8.2)
[2024-02-11] MEDS ORDERED: CIPROFLOXACIN 250 MG TABLET (RESTRICTED TO ID) PO ONE (22:25)
[2024-02-11] MEDS: CIPROFLOXACIN 500 MG TABLET (RESTRICTED TO ID) PO ONE (22:36)
[2024-02-11 23:03] VITALS: BP 144/79; PULSE 80; TEMP 98.2
== END 2024-02-11 23:02 | disposition home or self-care (01) ==
LOC: FER 19:58
PROC: 3E033NZ Introduction of Analgesics, Hypnotics, Sedatives into Peripheral Vein, Percutaneous Approach (ICD-10-PCS; principal; 2024-02-11)
PROC: 3E0337Z Introduction of Electrolytic and Water Balance Substance into Peripheral Vein, Percutaneous Approach (ICD-10-PCS; 2024-02-11)
DX: N30.00 Acute cystitis without hematuria (principal); R11.10 Vomiting, unspecified
CPT/HCPCS: 36415; 80053; 81003; 81015; 84703; 85027; 87086; 87186; 99284-25; J0131

== ENCOUNTER 2024-04-06 10:20 | Emergency (ER) | payer OTHER, BC ==
[2024-04-06 10:31] VITALS: BP 155/95; PULSE 100; RESP 20; TEMP 98.6; BMI 48.6
== END 2024-04-06 11:32 | disposition home or self-care (01) ==
LOC: FER 10:20
DX: J40 Bronchitis, not specified as acute or chronic (principal); R05.9 Cough, unspecified; M54.9 Dorsalgia, unspecified; Z20.822 Contact with and (suspected) exposure to COVID-19
CPT/HCPCS: 0241U-QW; 71046-TC-FY; 99284-25